=== PATIENT | female | born 1990 ===

== ENCOUNTER 2024-01-05 20:37 | Inpatient (IN) | payer BC ==
[~2024-01-05 20:37] MED LIST: Bupivacaine 0.25% HCL 30 ML VIAL ONE
[2024-01-05] MEDS ORDERED: Methylergonovine 0.2 MG/ML VIAL IM PRN (20:57)
[2024-01-05] MEDS ORDERED: Carboprost 250 MCG/ML AMP IM PRN (20:57)
[2024-01-05] MEDS ORDERED: Acetaminophen 500 MG TAB PO PRN (20:57)
[2024-01-05] MEDS ORDERED: Diphenoxylate HCl/Atropine Tablet PO PRN ×2 (20:57)
[2024-01-05] MEDS ORDERED: HYDROcodone/Acetaminophen 5/325 mg Tablet PO PRN ×2 (20:57)
[2024-01-05] MEDS ORDERED: Ibuprofen 800 MG TAB PO PRN (20:57)
[2024-01-05] MEDS ORDERED: fentaNYL 50 mcg/mL 1 mL Vial SLOW IVP PRN (20:57)
[2024-01-05] MEDS ORDERED: Tranexamic Acid 1,000 MG/10 ML VIAL IVP PRN (20:57)
[2024-01-05] MEDS ORDERED: Lidocaine 1% (PF) 30 ML VIAL SC PRN (20:57)
[2024-01-05] MEDS ORDERED: Promethazine HCl 25 MG/ML VIAL IM PRN (20:57)
[2024-01-05] MEDS ORDERED: Misoprostol 200 MCG TAB PR PRN (20:57)
[2024-01-05] MEDS ORDERED: hydrALAZINE 20 MG/ML VIAL SLOW IVP PRN (20:57)
[2024-01-05] MEDS ORDERED: Ondansetron PF 4 MG/2 ML Vial IVP PRN (20:57)
[2024-01-05] MEDS ORDERED: Misoprostol 100 MCG TAB VAG SCH (22:00)
[2024-01-05] MEDS ORDERED: Oxytocin 30 units/NS 500 ML 500 ML IV SCH (22:00)
[2024-01-05 22:14] LABS: Hematocrit 35.6 % (34.9-44.5); Hemoglobin 12.1 g/dL (12.0-15.5); Mean Corpuscular Hemoglobin 28.5 pg (27.0-33.0); Mean Corpuscular Volume 83.8 fl (81.6-98.3); Platelet Count 292 10x3/uL (150-450); Red Blood Cell (RBC) Count 4.25 10x6/uL (3.90-5.03); White Blood Cell (WBC) Count 10.6 10x3/uL (3.5-10.5)
[2024-01-05 22:29] VITALS: BMI 30.1
[2024-01-05 22:42] LABS: HBSAg Index 0.19 S/CO (0-0.99); Hep B Surf Ag - L&D Non-Reactive S/CO (NonReactive)
[2024-01-05 22:43] LABS: Syphilis Antibody Nonreactive (Nonreactive); Syphilis Antibody Index 0.04 S/CO (<1.00 Non-Reactive)
[2024-01-05] MEDS: Lactated Ringer's 1,000 ML IV SCH (22:46)
[2024-01-05] MEDS: Oxytocin 30 units/NS 500 ML 500 ML IV SCH (22:49)
[2024-01-05] MEDS: Calcium Carbonate 500 MG ChewTAB PO PRN (23:56)
[2024-01-06] MEDS ORDERED: ePHEDrine Sulfate 50 MG/10 ML VIAL SLOW IVP PRN (02:39)
[2024-01-06] MEDS ORDERED: Ondansetron PF 4 MG/2 ML Vial IVP PRN (02:39)
[2024-01-06] MEDS ORDERED: Acetaminophen 325 MG TAB PO PRN (02:39)
[2024-01-06] MEDS ORDERED: Lactated Ringer's 500 ML IV PRN (02:39)
[2024-01-06] MEDS ORDERED: Naloxone HCl 0.4 mg/ml Vial IVP PRN ×2 (02:39)
[2024-01-06] MEDS ORDERED: Promethazine HCl 25 MG/ML VIAL IM PRN (02:39)
[2024-01-06] MEDS ORDERED: diphenhydrAMINE 50 MG/ML VIAL IVP PRN (02:39)
[2024-01-06] MEDS ORDERED: Moisturizing Cream (Eucerin) 113 GM JAR TOP PRN (02:39)
[2024-01-06] MEDS ORDERED: fentaNYL 2 mcg/Ropivacaine 0.2% Epidural 100 ML CADD EPIDURAL SCH (02:45)
[2024-01-06] MEDS ORDERED: Communication Order-Pharmacy FS SCH (02:45)
[2024-01-06] MEDS ORDERED: Milk Of Magnesia 30 ML UDCUP PO PRN (05:42)
[2024-01-06] MEDS ORDERED: diphenhydrAMINE 25 MG CAP PO PRN (05:42)
[2024-01-06] MEDS ORDERED: Bisacodyl 10 MG SUPP PR PRN (05:42)
[2024-01-06] MEDS ORDERED: Lanolin Ointment 7 GM TUBE TOP PRN (05:42)
[2024-01-06] MEDS ORDERED: hydrALAZINE 20 MG/ML VIAL SLOW IVP PRN (05:42)
[2024-01-06] MEDS ORDERED: Preparation H Ointment 28 GM TUBE PR PRN (05:42)
[2024-01-06] MEDS ORDERED: Levothyroxine Sodium 50 MCG TAB PO SCH (07:00)
[2024-01-06] MEDS: LEVOTHYROXINE 50 MCG PO SCH (07:00)
[2024-01-06] MEDS: Ibuprofen 800 MG TAB PO SCH (07:19)
[2024-01-06] MEDS ORDERED: Metoprolol Tartrate 25 MG TAB PO SCH (09:00)
[2024-01-06] MEDS: METOPROLOL TARTRATE 25 MG PO SCH (09:30)
[2024-01-06] MEDS: Docusate 100 MG CAP PO SCH (11:10)
[2024-01-06] MEDS: Prenatal Vitamin 1 TAB PO SCH (11:11)
[2024-01-06] MEDS: traMADol HCl 50 MG TAB PO PRN (11:48)
[2024-01-06] MEDS: Benzocaine-Menthol 82.5 ML CAN TOP PRN (11:50)
[2024-01-06] MEDS ORDERED: Witch Hazel-Glycerin 1 EACH JAR TOP PRN (12:28)
[2024-01-06] MEDS: Boostrix 0.5 ML (Tdap) VIAL (>/=7 yrs of age) IM ONE (12:37)
[2024-01-06] MEDS: fentaNYL 50 mcg/mL 1 mL Vial ONE (12:37)
[2024-01-06] MEDS: fentaNYL/Ropivacaine Epidural 100 ML ONE (12:38)
[2024-01-06] MEDS: SERTRALINE 50 MG PO SCH (21:08)
[2024-01-07 08:07] VITALS: BP 109/69; TEMP 97.5
[2024-01-07] MEDS: Acetaminophen 325 MG TAB PO PRN (10:00)
== END 2024-01-07 16:21 | disposition home or self-care (01) | DRG 807 ==
LOC: CSHLD 20:37 → CSHPED 01-06 09:20
PROVIDERS: ADMIT Obstetrics & Gynecology; ATTEND Obstetrics & Gynecology
PROC: 10E0XZZ Delivery of Products of Conception, External Approach (ICD-10-PCS; principal; 2024-01-06)
PROC: 0UQMXZZ Repair Vulva, External Approach (ICD-10-PCS; 2024-01-06)
DX: O99.284 Endocrine, nutritional and metabolic diseases complicating childbirth (principal); Z37.0 Single live birth; O99.344 Other mental disorders complicating childbirth; E03.9 Hypothyroidism, unspecified; F41.1 Generalized anxiety disorder; O70.0 First degree perineal laceration during delivery; Z79.899 Other long term (current) drug therapy; Z79.890 Hormone replacement therapy; Z3A.39 39 weeks gestation of pregnancy; Z91.040 Latex allergy status
CPT/HCPCS: 36415; 51702; 85027; 86780; 86850; 86900; 86901; 87340; J0665; J2590; J7120